=== PATIENT | male | born 1965 | race Caucasian/White ===

== ENCOUNTER 2018-06-20 10:46 | Inpatient (IN) | payer OTHER ==
[~2018-06-20] VITALS: Ht 185.4 cm; Wt 76.7 kg
[2018-06-20 10:50] VITALS: Ht 185.4 cm; Wt 76.7 kg
[2018-06-20 11:41] LABS: BASOPHIL % 0.4 % (0-2); PLATELET COUNT 255 x10^3mcL (130-400); RED CELL DISTRIBUTION WIDTH 13.5 % (11.5-14.5)
[2018-06-20 11:49] LABS: CALCIUM 9.2 mg/dL (8.5-10.1); CARBON DIOXIDE 32.6 mmol/L (21-32); CHLORIDE SERUM 104 mmol/L (98-107); GFR1 > 60 mL/min; GLUCOSE SERUM 101 mg/dL (74-106); POTASSIUM SERUM 4.4 mmol/L (3.5-5.1); SODIUM SERUM 144 mmol/L (136-145)
[2018-06-20 11:53] LABS: ALBUMIN 3.8 g/dL (3.4-5.0); ALKALINE PHOSPHATASE 75 U/L (46-116); ALT/SGPT 54 U/L (16-63); AST/SGOT 29 U/L (15-37); CHOLESTEROL 146 mg/dL (<200); HDL CHOLESTEROL 50 mg/dL (40-60); PHOSPHOROUS 3.1 mg/dL (2.5-4.9); TOTAL PROTEIN, SERUM 7.7 g/dL (6.4-8.2)
[2018-06-20] MEDS ORDERED: MECLIZINE HYDRO25 M1 PO (13:40)
[2018-06-20] MEDS ORDERED: FLONS (13:41)
[2018-06-20] MEDS ORDERED: ALLERGY10 M3 PO (13:41)
[2018-06-20] MEDS ORDERED: GOOD SENSE ASPI81 M3 PO (13:42)
[2018-06-20 15:23] VITALS: BP 105/82
[2018-06-20 15:24] LABS: MAGNESIUM 1.4 mg/dL (1.8-2.4)
[2018-06-20 15:29] LABS: T3 TOTAL 1.63 ng/mL
[2018-06-20 15:34] LABS: FREE T4 1.11 ng/dL (0.76-1.46); FREE THYROXINE INDEX 3.7 ug/dL (1.4-4.5); T4(THYROXINE) 12.4 ug/dL (4.7-13.3)
[2018-06-20 16:18] LABS: microscopic required? NO
[2018-06-20 16:25] LABS: UA SPECIFIC GRAVITY 1.015 (1.005-1.035); urine erythrocyte NEGATIVE (NEGATIVE)
[2018-06-20 16:31] LABS: AMPHETAMINE QUAL UR NONE DETECTED (See below)
[2018-06-20 17:29] VITALS: BP 106/49
[2018-06-20 21:37] VITALS: BP 96/66
[2018-06-21 04:59] VITALS: BP 102/66
[2018-06-21 09:40] VITALS: BP 117/72
[2018-06-21 11:24] LABS: CALCIUM 8.4 mg/dL (8.5-10.1); CARBON DIOXIDE 30.6 mmol/L (21-32); CHLORIDE SERUM 106 mmol/L (98-107); CREATININE SERUM 1.1 mg/dL (0.7-1.3); GFR1 > 60 mL/min; GLUCOSE SERUM 90 mg/dL (74-106); POTASSIUM SERUM 4.4 mmol/L (3.5-5.1); SODIUM SERUM 146 mmol/L (136-145)
[2018-06-21 12:00] LABS: BASOPHIL % 0.6 % (0-2); PLATELET COUNT 227 x10^3mcL (130-400); RED CELL DISTRIBUTION WIDTH 13.3 % (11.5-14.5)
[2018-06-21 13:05] VITALS: BP 105/65
[2018-06-21 17:27] VITALS: BP 92/60
[2018-06-21 21:42] VITALS: BP 104/62
[2018-06-22 06:45] LABS: CALCIUM 8.7 mg/dL (8.5-10.1); CARBON DIOXIDE 33.8 mmol/L (21-32); CHLORIDE SERUM 106 mmol/L (98-107); CREATININE SERUM 1.1 mg/dL (0.7-1.3); GFR1 > 60 mL/min; GLUCOSE SERUM 100 mg/dL (74-106); POTASSIUM SERUM 4.3 mmol/L (3.5-5.1); SODIUM SERUM 145 mmol/L (136-145)
[2018-06-22 07:24] LABS: BASOPHIL % 0.4 % (0-2); PLATELET COUNT 225 x10^3mcL (130-400); RED CELL DISTRIBUTION WIDTH 13.5 % (11.5-14.5)
[2018-06-22 09:00] VITALS: BP 116/76
[2018-06-22 13:32] VITALS: BP 105/64
[2018-06-22 16:55] VITALS: BP 102/62
[2018-06-22 21:40] VITALS: BP 96/63
[2018-06-23 06:16] VITALS: BP 102/62
[2018-06-23 06:18] LABS: BASOPHIL % 0.4 % (0-2); PLATELET COUNT 211 x10^3mcL (130-400)
[2018-06-23 06:47] LABS: CALCIUM 8.8 mg/dL (8.5-10.1); CARBON DIOXIDE 30.7 mmol/L (21-32); CHLORIDE SERUM 104 mmol/L (98-107); GFR1 > 60 mL/min; GLUCOSE SERUM 89 mg/dL (74-106); MAGNESIUM 1.3 mg/dL (1.8-2.4); PHOSPHOROUS 3.3 mg/dL (2.5-4.9); POTASSIUM SERUM 3.7 mmol/L (3.5-5.1); SODIUM SERUM 142 mmol/L (136-145)
[2018-06-23 09:40] VITALS: BP 98/62
[2018-06-23] MEDS ORDERED: MECLIZINE TRAVE25 MG PO (12:02)
[2018-06-23] MEDS ORDERED: ATIVAN0.5 M1 PO (12:03)
[2018-06-23 13:56] VITALS: BP 98/62
[2018-06-23 14:04] VITALS: BP 104/66
== END 2018-06-23 14:45 | disposition home or self-care (01) | DRG 48 ==
LOC: ED 10:46 → DU 13:42
PROVIDERS: Emergency Medicine; General Practice; Internal Medicine
DX: G90.8 Other disorders of autonomic nervous system (principal); E83.42 Hypomagnesemia; F41.9 Anxiety disorder, unspecified; H66.92 Otitis media, unspecified, left ear; J44.9 Chronic obstructive pulmonary disease, unspecified; Z60.2 Problems related to living alone; F11.21 Opioid dependence, in remission; H93.3X2 Disorders of left acoustic nerve; Z68.22 Body mass index [BMI] 22.0-22.9, adult; Z86.73 Personal history of transient ischemic attack (TIA), and cerebral infarction without residual deficits; Z79.82 Long term (current) use of aspirin
CPT/HCPCS: 83880; 84439; A9577; C9113; J1885; J2060; Q0092